=== PATIENT | female | born 1940 | race African-American/Black ===

== ENCOUNTER 2021-01-13 17:27 | Emergency (ER) | payer MEDICARE, OTHER ==
[~2021-01-13 17:27] MED LIST: ASPIRIN EC81 MG PO; BACLOFEN 10MG T10 MG PO; NAPROXEN500 MG PO
[2021-01-13] MEDS ORDERED: PREDNISONE 20MG20 MG PO (20:17)
[2021-01-13] MEDS ORDERED: VALACYCLOVIR1000 MG PO (20:17)
== END 2021-01-13 20:25 | disposition home or self-care (01) ==
LOC: FER 17:27
DX: G51.0 Bell's palsy (principal); J44.9 Chronic obstructive pulmonary disease, unspecified; N18.9 Chronic kidney disease, unspecified
CPT/HCPCS: 70450; 71045

== ENCOUNTER 2021-04-27 07:43 | Emergency (ER) | payer MEDICARE, OTHER ==
[~2021-04-27 07:43] MED LIST changes: +PREDNISONE 20MG20 MG PO; +VALACYCLOVIR1000 MG PO
[2021-04-27] MEDS ORDERED: PREDNISONE 20MG20 MG PO (09:43)
[2021-04-27] MEDS ORDERED: AZITHROMYCIN250 MG PO (09:43)
== END 2021-04-27 10:05 | disposition home or self-care (01) ==
LOC: FER 07:43
DX: J44.1 Chronic obstructive pulmonary disease with (acute) exacerbation (principal); I10 Essential (primary) hypertension; Z20.822 Contact with and (suspected) exposure to COVID-19; Z79.899 Other long term (current) drug therapy
CPT/HCPCS: 71045; 94640; J7512; U0002

== ENCOUNTER 2022-01-05 13:46 | Emergency (ER) | payer MEDICARE, OTHER ==
[~2022-01-05 13:46] MED LIST changes: +AZITHROMYCIN250 MG PO
[2022-01-05 15:39] LABS: BASOPHIL 0.4 % (0-2); HCT 40.2 % (37.0-47.0); HGB 12.8 g/dl (12.5-16.0); LYMPHOCYTE 36.4 % (15-48); MCH 27.9 pg (25.0-31.0); MCHC 31.8 g/dL (32.0-36.0); MCV 87.6 fL (78.0-100.0); MONOCYTE 6.5 % (0-12); MPV 9.5 fL (6.0-9.5); NEUTROPHIL 52.4 % (41-80); NRBC 0; PLT 290 K/uL (150-400); RBC 4.59 M/uL (4.20-5.40); RDW 15.1 % (11.5-14.0); WBC 6.8 K/uL (4.0-10.5)
[2022-01-05 16:17] LABS: ALBUMIN 3.7 g/dL (3.4-5.0); BILIRUBIN - TOTAL 0.3 mg/dL (0.2-1.0); BUN/CREAT RATIO (CALC) 18.7 RATIO; CREATININE 1.39 mg/dL (0.51-0.95); GLOBULIN (CALCULATION) 4.8 g/dL; POTASSIUM 4.5 mmol/L (3.5-5.1); TOTAL PROTEIN 8.5 g/dL (6.4-8.2)
[2022-01-05] MEDS ORDERED: PREDNISONE 20MG20 MG PO (17:11)
[2022-01-05] MEDS ORDERED: ZOVIRAX800 MG PO (17:11)
== END 2022-01-05 17:30 | disposition home or self-care (01) ==
LOC: FER 13:46
PROVIDERS: Emergency Medicine
DX: G51.0 Bell's palsy (principal); I10 Essential (primary) hypertension
CPT/HCPCS: 36415; 70450; 70551; 71046; 80053; 85025; J7512